=== PATIENT | male | born 1995 | race African-American/Black ===

== ENCOUNTER 2019-05-21 18:34 | Emergency (ER) | payer OTHER ==
[~2019-05-21] VITALS: Ht 165.1 cm; Wt 63.0 kg
[2019-05-21 18:37] VITALS: BP 126/74
[2019-05-21] MEDS ORDERED: ALBUTEROL/IPRATROPIUM 2.5MG/0.5MG, 3 ML NPPB SCH (20:00)
[2019-05-21] MEDS ORDERED: ALBUTEROL/IPRATROPIUM 2.5MG/0.5MG, 3 ML ONE (20:17)
== END 2019-05-21 20:56 | disposition home or self-care (01) ==
LOC: ED 20:20
DX: J45.41 Moderate persistent asthma with (acute) exacerbation (principal); F17.210 Nicotine dependence, cigarettes, uncomplicated
CPT/HCPCS: 94640; 99283; J7512; J7620